=== PATIENT | female | born 1985 | race Two or more races ===

== ENCOUNTER 2018-07-31 15:34 | Emergency (ER) | payer SELFPAY ==
[~2018-07-31] VITALS: Ht 162.6 cm; Wt 52.3 kg
[2018-07-31 15:35] VITALS: BP 123/69; PULSE 105; RESP 18; Ht 162.6 cm; Wt 52.3 kg
== END 2018-07-31 18:04 | disposition left against medical advice (07) ==
LOC: FTE 15:34
DX: Z53.21 Procedure and treatment not carried out due to patient leaving prior to being seen by health care provider (principal)